=== PATIENT | male | born 1955 | race Two or more races ===

== ENCOUNTER 2018-03-05 17:19 | Inpatient (IN) | payer MEDICARE ==
[~2018-03-05] VITALS: Ht 170.2 cm; Wt 68.0 kg
--- NOTE | 2018-03-05 17:25 | NUR ---
PT [facility]YCH [facility]AR[facility], PT IS AAOX3, NOT IN RESPIRATORY DISTRESS, V/S STABLE. KEPT RESTED AND COMFORTABLE.
[2018-03-05 18:39] LABS: BASOPHILS # (AUTO) 0.1 /CMM (0.0-0.2); BASOPHILS % (AUTO) 0.8 % (0.0-2.0); EOSINOPHILS % (AUTO) 1.2 % (0.0-6.0); HEMATOCRIT 38 % (39-51); HEMOGLOBIN 12.5 g/dL (13.5-17.5); LYMPHOCYTES # (AUTO) 1.1 /CMM (0.8-4.8); LYMPHOCYTES % (AUTO) 13.9 % (20.0-44.0); MEAN CORPUSCULAR HGB CONC 33 g/dl (31.0-36.0); MEAN CORPUSCULAR VOLUME 82 fL (80-96); MONOCYTES # (AUTO) 0.6 /CMM (0.1-1.30); MONOCYTES % (AUTO) 7.7 % (2.0-12.0); NEUTROPHILS # (AUTO) 6.2 /CMM (1.8-8.9); NEUTROPHILS % (AUTO) 76.4 % (43.0-81.0); PLATELET COUNT (AUTO) 472 /CMM (150-450); RED BLOOD CELL COUNT(AUTO) 4.62 MIL/uL (4.5-6.0); WHITE BLOOD COUNT (AUTO) 8.2 K/uL (4.3-11.0)
--- NOTE | 2018-03-05 18:40 | NUR ---
SEEND AND EXAMINED BY KATIE LEDBETTER
--- NOTE | 2018-03-05 18:42 | NUR ---
LABS DRAWNED AND URINE SPECIMEN COLLECTED AND SENT TO LAB.
[2018-03-05 18:44] LABS: APPEARANCE,URINE Clear (CLEAR); BILIRUBIN,URINE Negative (NEGATIVE); BLOOD, URINE Negative Ery/uL (NEGATIVE); COLOR,URINE Yellow (YELLOW); KETONES,URINE Negative (NEGATIVE); LEUKOCYTE ESTERASE ,URINE Negative (NEGATIVE); NITRITE, URINE Negative (NEGATIVE); PROTEIN,URINE Negative (NEGATIVE); UGLUCOSE 100 MG/DL mg/dL (NEGATIVE); UROBILINOGEN,URINE 0.2 EU/dL (0.2)
[2018-03-05 18:51] LABS: CALCIUM, SERUM 9.3 mg/dL (8.5-10.1); CARBON DIOXIDE 30 mmol/L (21-32); CHLORIDE 102 mmol/L (98-107); CREATININE 0.6 mg/dL (0.6-1.3); GLUCOSE 92 mg/dL (74-106); POTASSIUM 3.9 mmol/L (3.5-5.1); SODIUM SERUM 139 mmol/L (136-145); UREA NITROGEN, BLOOD 8 mg/dL (7-18)
[2018-03-05 18:54] LABS: ALANINE AMINOTRANSFERASE 43 U/L (12-78); ALBUMIN 3.2 g/dL (3.4-5.0); ALCOHOL, BLOOD < 3 mg/dL (0-0); ALKALINE PHOSPHATASE 80 U/L (46-116); ASPARTATE AMINOTRANSFERASE 21 U/L (15-37); BILIRUBIN,DIRECT 0.2 mg/dL (0.0-0.2); BILIRUBIN,TOTAL 0.3 mg/dL (0.2-1.0); TOTAL PROTEIN, SERUM 8.1 g/dL (6.4-8.2)
[2018-03-05 18:55] LABS: ACETAMINOPHEN < 2 ug/ml (10-30); SALICYLATE < 2.8 mg/dL (2.8-20.0)
--- NOTE | 2018-03-05 19:21 | NUR ---
REPORT GIVEN TO JARAD SOSA FOR EVGENY.
--- NOTE | 2018-03-05 22:39 | NUR ---
report given to [facility], pt going to room 217
--- NOTE | 2018-03-05 23:06 | NUR ---
PT BEING TRANSFERRED TO [facility] NOW, NO MEDICATIONS PRESENT, PT CANNOT REMEMBER WHAT MEDICATIONS HE TAKES
[2018-03-05 23:15] VITALS: BP 132/71
--- NOTE | 2018-03-05 23:15 | NUR ---
[facility]PS ADMISSION NOTES ADMITTED FROM ER THIS 63 YO MALE FROM [facility],WITH DX PSYCHOSIS.EASILY AGITATED,THREATENED TO BURN DOWN THE FACILITY.A/O X2-3,ABLE TO PROVIDE SOME INFORMATION REGARDING SELF.NO IV ACCESS PER GPS PROTOCOL.NOTED SKIN LESIONS/MAS ON LEFT NECK WHICH STARTED 8 MONTHS AGO PER PATIENT.AMBULATORY WITH STEADY GAIT.WILL CONTINUE TO MONITOR BEHAVIOR AND MANAGE ACCORDINGLY.
[2018-03-05] MEDS ORDERED: LORAZEPAM 0.5 MG TABLET PO PRN (23:30)
[2018-03-05] MEDS ORDERED: MAGNESIUM HYDROXIDE 30 ML UDC PO PRN (23:30)
[2018-03-05] MEDS ORDERED: MAG HYDROX/AL HYDROX/SIMETH 30 ML UDC PO PRN (23:30)
[2018-03-05] MEDS: ACETAMINOPHEN 325 MG TABLET PO PRN (23:44)
--- NOTE | 2018-03-05 23:44 | NUR ---
[facility]PS RN NOTES C/O HEADACHE,MEDICATED WITH TYLENOL 650MG PO ORDERED.
[2018-03-06] MEDS ORDERED: MULT1TAB73 PO (06:58)
[2018-03-06] MEDS ORDERED: FOLI1TAB16 PO (06:58)
[2018-03-06] MEDS ORDERED: GABA-534 PO (06:58)
[2018-03-06] MEDS ORDERED: CHOL200026 PO (06:58)
[2018-03-06] MEDS ORDERED: THIA100V2 IJ (06:58)
[2018-03-06] MEDS ORDERED: OLAN2.5T3 PO (06:58)
[2018-03-06] MEDS ORDERED: ACET-868 PO (07:50)
[2018-03-06] MEDS ORDERED: NA P133E RC (07:50)
[2018-03-06] MEDS ORDERED: DOCU-141 PO (07:50)
[2018-03-06] MEDS ORDERED: RISP0.253 PO (07:50)
[2018-03-06] MEDS ORDERED: CEPH-570 PO (07:50)
[2018-03-06] MEDS ORDERED: MULT-24 PO (07:50)
[2018-03-06] MEDS ORDERED: MAG30ORA PO (07:50)
[2018-03-06] MEDS ORDERED: THIA100T74 PO (07:50)
[2018-03-06 08:00] VITALS: BP 119/81
[2018-03-06 08:08] LABS: BASOPHILS % (AUTO) 0.6 % (0.0-2.0); HEMATOCRIT 35 % (39-51); HEMOGLOBIN 11.7 g/dL (13.5-17.5); LYMPHOCYTES # (AUTO) 1.1 /CMM (0.8-4.8); LYMPHOCYTES % (AUTO) 16.3 % (20.0-44.0); MEAN CORPUSCULAR HGB CONC 33 g/dl (31.0-36.0); MEAN CORPUSCULAR VOLUME 81 fL (80-96); MONOCYTES # (AUTO) 0.6 /CMM (0.1-1.30); MONOCYTES % (AUTO) 8.4 % (2.0-12.0); NEUTROPHILS # (AUTO) 5.1 /CMM (1.8-8.9); NEUTROPHILS % (AUTO) 72.7 % (43.0-81.0); PLATELET COUNT (AUTO) 422 /CMM (150-450); RED BLOOD CELL COUNT(AUTO) 4.37 MIL/uL (4.5-6.0)
[2018-03-06 08:24] LABS: ALBUMIN 2.9 g/dL (3.4-5.0); BILIRUBIN,TOTAL 0.4 mg/dL (0.2-1.0); CALCIUM, SERUM 8.9 mg/dL (8.5-10.1); CREATININE 0.6 mg/dL (0.6-1.3); TOTAL PROTEIN, SERUM 7.1 g/dL (6.4-8.2)
[2018-03-06 08:27] LABS: CHOLESTEROL 140 mg/dL (<200); HDL CHOLESTEROL 25 mg/dL (40-60); LDL 90 mg/dL (0-99); TRIGLYCERIDES 212 mg/dL (30-150)
[2018-03-06] MEDS ORDERED: OLANZAPINE 10 MG VIAL IM PRN (10:30)
--- NOTE | 2018-03-06 10:45 | NUR ---
SW contacted pts Public Guardian with [facility] Jo Ann Mcdowell [phone] to request Detain and Treat and Conservatorship documentation. SW received documents and placed in pts chart.
--- NOTE | 2018-03-06 10:47 | NUR ---
CORBY contacted Loni, diabetes education coordinator at [facility] Address: [address] [place] [address] who confirmed pt will return to facility.
--- NOTE | 2018-03-06 11:10 | NUR ---
INITIAL DISCHARGE PLAN: Per Public Piedad Mcdowell [phone] pt will return to [facility]. CORBY contacted Loni regulatory compliance coordinator at [facility] Address: [address] [place] [address] who confirmed pt will return to facility. CORBY will help form a safe and proper discharge in collaboration with public guardian and .
[2018-03-06] MEDS: DIVALPROEX SODIUM 250 MG TABLET.DR PO SCH ×2 (11:12→21:00)
[2018-03-06] MEDS: OLANZAPINE 5 MG/TAB.RAPDIS PO SCH ×2 (11:13→16:39)
[2018-03-06] MEDS: GABAPENTIN 300 MG CAPSULE PO SCH ×2 (12:25→16:39)
[2018-03-06 16:00] VITALS: BP 121/68
--- NOTE | 2018-03-06 18:19 | NUR ---
RN-CO: Patient was seen and examined by Raulito Lang NP , notified him of the left mass on the lateral neck with order of CT of the neck without contrast.
[2018-03-06] MEDS ORDERED: NA PHOS,M-B/NA PHOS,DI-BA 1 EA ENEMA RC PRN (18:30)
[2018-03-06] MEDS ORDERED: ACETAMINOPHEN 325 MG TABLET PO PRN (18:30)
[2018-03-06] MEDS ORDERED: MAG HYDROX/AL HYDROX/SIMETH 30 ML UDC PO PRN (18:30)
[2018-03-06 20:00] VITALS: BP 113/64
[2018-03-06] MEDS: ZOLPIDEM TARTRATE 5 MG TABLET PO PRN (22:15)
[2018-03-07 08:00] VITALS: BP 116/67
[2018-03-07] MEDS: OLANZAPINE 5 MG/TAB.RAPDIS PO SCH ×2 (08:44→18:22)
[2018-03-07] MEDS: DIVALPROEX SODIUM 250 MG TABLET.DR PO SCH ×3 (08:45→21:16)
[2018-03-07] MEDS: GABAPENTIN 300 MG CAPSULE PO SCH ×3 (08:45→18:22)
[2018-03-07] MEDS: FOLIC ACID 1 MG TABLET PO SCH (08:50)
[2018-03-07] MEDS: MULTIVITAMINS,THERAGRAN 1 UDTAB TABLET PO SCH (08:50)
[2018-03-07] MEDS: DOCUSATE SODIUM 100 MG CAPSULE PO SCH ×2 (08:51→18:22)
[2018-03-07] MEDS: THIAMINE HCL 100 MG TABLET PO SCH (08:51)
[2018-03-07] MEDS: CHOLECALCIFEROL 1,000 UNIT TABLET (VIT D3) PO SCH (08:51)
[2018-03-07] MEDS: ACETAMINOPHEN 325 MG TABLET PO PRN (15:06)
[2018-03-07 16:00] VITALS: BP 121/78
[2018-03-07] MEDS ORDERED: IV NS 0.9% 1,000 ML BAG IV PRN (17:00)
[2018-03-07 20:00] VITALS: BP 124/72
[2018-03-07] MEDS: ZOLPIDEM TARTRATE 5 MG TABLET PO PRN (21:16)
--- NOTE | 2018-03-07 21:20 | NUR ---
SURFACE TO AIR WEAPONS OFFICER NOTES MAALOX GIVEN PER PT REQUESTED WELL HIS ROUTINE MEDS. SNACKS ALSO SERVED.
[2018-03-08 08:00] VITALS: BP 105/60
[2018-03-08] MEDS: GABAPENTIN 300 MG CAPSULE PO SCH ×3 (08:43→16:35)
[2018-03-08] MEDS: CHOLECALCIFEROL 1,000 UNIT TABLET (VIT D3) PO SCH (08:43)
[2018-03-08] MEDS: DIVALPROEX SODIUM 250 MG TABLET.DR PO SCH ×2 (08:43→22:00)
[2018-03-08] MEDS: OLANZAPINE 5 MG/TAB.RAPDIS PO SCH ×2 (08:43→16:35)
[2018-03-08] MEDS: DOCUSATE SODIUM 100 MG CAPSULE PO SCH ×2 (08:43→16:35)
[2018-03-08] MEDS: FOLIC ACID 1 MG TABLET PO SCH (08:43)
[2018-03-08] MEDS: THIAMINE HCL 100 MG TABLET PO SCH (08:45)
[2018-03-08] MEDS: MULTIVITAMINS,THERAGRAN 1 UDTAB TABLET PO SCH (08:45)
[2018-03-08 11:42] LABS: BASOPHILS % (AUTO) 0.4 % (0.0-2.0); EOSINOPHILS % (AUTO) 1.6 % (0.0-6.0); HEMATOCRIT 35 % (39-51); HEMOGLOBIN 11.8 g/dL (13.5-17.5); LYMPHOCYTES # (AUTO) 1.8 /CMM (0.8-4.8); LYMPHOCYTES % (AUTO) 16.5 % (20.0-44.0); MEAN CORPUSCULAR HGB CONC 34 g/dl (31.0-36.0); MEAN CORPUSCULAR VOLUME 80 fL (80-96); MONOCYTES # (AUTO) 0.8 /CMM (0.1-1.30); MONOCYTES % (AUTO) 7.8 % (2.0-12.0); NEUTROPHILS # (AUTO) 7.9 /CMM (1.8-8.9); NEUTROPHILS % (AUTO) 73.7 % (43.0-81.0); PLATELET COUNT (AUTO) 435 /CMM (150-450); RED BLOOD CELL COUNT(AUTO) 4.37 MIL/uL (4.5-6.0); WHITE BLOOD COUNT (AUTO) 10.7 K/uL (4.3-11.0)
[2018-03-08 11:55] LABS: CALCIUM, SERUM 8.8 mg/dL (8.5-10.1); CREATININE 0.7 mg/dL (0.6-1.3); POTASSIUM 3.9 mmol/L (3.5-5.1)
[2018-03-08] MEDS: ACETAMINOPHEN 325 MG TABLET PO PRN (12:56)
[2018-03-08 16:00] VITALS: BP 142/93
--- NOTE | 2018-03-08 19:11 | NUR ---
GPS/RN ENDORSED TO HEALTH POLICY MANAGER TO GET THE MESSAGE TO DAY SHIFT NURSE TO FOLLOW UP ON CONSENTS FOR PROCEDURES TO BE SIGNED BY THE CONSERVATOR. CONSENTS ARE READY AND PLACED IN THE CHART.
[2018-03-08 20:00] VITALS: BP 114/55
[2018-03-08 20:20] VITALS: BP 114/55
[2018-03-09 08:00] VITALS: BP 128/75
[2018-03-09] MEDS: GABAPENTIN 300 MG CAPSULE PO SCH ×3 (10:04→17:14)
[2018-03-09] MEDS: CHOLECALCIFEROL 1,000 UNIT TABLET (VIT D3) PO SCH (10:04)
[2018-03-09] MEDS: THIAMINE HCL 100 MG TABLET PO SCH (10:04)
[2018-03-09] MEDS: DIVALPROEX SODIUM 250 MG TABLET.DR PO SCH ×2 (10:04→21:13)
[2018-03-09] MEDS: DOCUSATE SODIUM 100 MG CAPSULE PO SCH ×2 (10:04→17:14)
[2018-03-09] MEDS: FOLIC ACID 1 MG TABLET PO SCH (10:04)
[2018-03-09] MEDS: MULTIVITAMINS,THERAGRAN 1 UDTAB TABLET PO SCH (10:05)
--- NOTE | 2018-03-09 10:23 | NUR ---
RN NOTE: CALLED CONSERVATOR FOR CONSENTS, BUT NO DECORATING SUPERVISOR. LEFT A MESSAGE AND WILL FOLLOW UP LATER TODAY.
--- NOTE | 2018-03-09 10:25 | NUR ---
CORBY received a call from Cassie from [facility] [phone] stating pt has a reappointment hearing on 03/12/18 at 8:30am at [address] [place] [address] [address]. CORBY stated she would contact Psychiatrist Dr. Vieyra to ask when pt will be ready for discharge.
--- NOTE | 2018-03-09 10:28 | NUR ---
CORBY contacted pts Public Guardian with [place] [facility] Mcdowell [phone] and left a voicemail informing her pt will be discharged on Friday03/11/[address] [facility].
[2018-03-09 12:58] LABS: THYROID STIMULATING HORMONE 0.411 uIU/mL (0.358-3.74)
--- NOTE | 2018-03-09 15:19 | NUR ---
SPOKE WITH JARAD PETIT AT 1100 AND 1515 CONSENT STILL PENDING FOR US GUIDED NEEDLE BIOPSY.. WILL FOLLOW UP TOMORROW
--- NOTE | 2018-03-09 15:54 | NUR ---
RN NOTE: CALLED CONSERVATOR ALY FOR CONSENT, BUT NO PICKUP. WILL ENDORSE TO INJECTION MOLDING MACHINE OPERATOR.
[2018-03-09 16:00] VITALS: BP 144/80
[2018-03-09] MEDS: OLANZAPINE 5 MG/TAB.RAPDIS PO SCH (17:14)
[2018-03-09 20:00] VITALS: BP 116/64
--- NOTE | 2018-03-10 06:47 | NUR ---
gps rn notes: patient refused to have his blood draw this morning. explained to patient the importance of such blood draw, but patient refused. cost report clerk attempted to do the blood draw thrice but patient still refused. charge nurse made aware. will endorse to day shift nurse.
[2018-03-10] MEDS: CHOLECALCIFEROL 1,000 UNIT TABLET (VIT D3) PO SCH (09:02)
[2018-03-10] MEDS: GABAPENTIN 300 MG CAPSULE PO SCH ×3 (09:02→16:27)
[2018-03-10] MEDS: OLANZAPINE 5 MG/TAB.RAPDIS PO SCH ×2 (09:02→16:26)
[2018-03-10] MEDS: DOCUSATE SODIUM 100 MG CAPSULE PO SCH ×2 (09:03→16:26)
[2018-03-10] MEDS: DIVALPROEX SODIUM 250 MG TABLET.DR PO SCH ×2 (09:03→20:34)
[2018-03-10] MEDS: FOLIC ACID 1 MG TABLET PO SCH (09:03)
[2018-03-10] MEDS: THIAMINE HCL 100 MG TABLET PO SCH (09:03)
[2018-03-10] MEDS: MULTIVITAMINS,THERAGRAN 1 UDTAB TABLET PO SCH (09:03)
[2018-03-10] MEDS: FERROUS SULFATE (325 MG) 325 MG/TAB TABLET PO SCH ×2 (09:03→16:26)
--- NOTE | 2018-03-10 09:50 | NUR ---
RN-CO: CALLED CONSERVATOR, JESSICA LAWSON REGARDING CONSENT FOR BIOPSY, AWAITING TO CALL BACK.
--- NOTE | 2018-03-10 09:53 | NUR ---
ESPINOZA LUND IN [facility] CONSENT NOT SIGNED, WILL NOTIFY RADIOLOGY.
--- NOTE | 2018-03-10 11:14 | NUR ---
CORBY contacted Loni, proposal coordinator at [facility] Address: [address] [place] [address] to inform her pt is discharging tomorrow Friday03/11/18 and also informed her pt has a reappointment hearing with [facility] on 03/12/18 at 0830.
--- NOTE | 2018-03-10 11:22 | NUR ---
SW received a xall from Loni, patient services coordinator at [facility] Address: [address] [place] [address] stating they do not have a bed for pt and due to his aggressive behavior they are not taking him back, Loni stated that pt is able to go to a sister facility.
--- NOTE | 2018-03-10 11:31 | NUR ---
SW contacted pts Public Guardian with [facility] Jo Ann Mcdowell [phone] and left a voicemail informing her [facility] is not taking pt back and will be referring to a SNF in the [place] area.
--- NOTE | 2018-03-10 11:33 | NUR ---
CORBY faxed SNF referral to Renato .Net Architect at [facility] Address: [address], [place] [address] and [facility] (SNF) [address] [address] for SNF placement. .
--- NOTE | 2018-03-10 12:00 | NUR ---
RN NOTES PT REFUSED LAB DRAWING TWICE TODAY , DR FREEMAN NOTIFIED. NO RETURN CALL FROM PUBLIC GUARDIAN CONSERVATOR JESSICA MARINA REGARDING CONSENT FOR BX AND CT SCAN YET. CALL MADE AND SPOKE TO DEVON PEDRAZA AT [phone] REGARDING THE CONSENT. PER DEVON PEDRAZA , SHE WILL GET IN TOUCH WITH JESSICA MARINA TO LET HER KNOW TO CALL [facility] REGARDING THE CONSENT.
--- NOTE | 2018-03-10 13:34 | NUR ---
SW received a call from Kat, affiliate marketing coordinator at [facility] () [address] [address] stating pt has been accepted to the facility.
--- NOTE | 2018-03-10 13:37 | NUR ---
SW contacted pts Public Guardian with [facility] Jo Ann Mcdowell [phone] and left a voicemail informing pt has been accepted and will be discharging to [facility].
--- NOTE | 2018-03-10 15:09 | NUR ---
RN NOTES CONSENTS OBTAINED BY FAX FROM PUBLIC GUARDIAN CONSERVATOR JESSICA MARINA . X- RAY NOTIFED REGARDING CT .
--- NOTE | 2018-03-10 15:15 | NUR ---
RN NOTES DR SCOTT NOTIFIED REGARDING INFORMED CONSENT THAT WAS RECEIVED FROM GUARDIAN .
--- NOTE | 2018-03-10 15:37 | NUR ---
RN-CO: Called radiology department for the schedule of the mass biopsy of the neck( since conservator) signed the consent. Per Dr Brandon Lerma order. Radiology will call GPS for the time tomm. Addendum: 03/10/18 at 1541 by PALLAVI BERNAL RN RN-CO: LORI artificial breeding ranch supervisor made aware and stated " we will deal with that tomorrow."
[2018-03-10 16:00] VITALS: BP 104/55
--- NOTE | 2018-03-10 16:05 | NUR ---
CORBY received a call from Cassie from [facility] [phone] stating pts reappointment hearing on 03/12/18 at 8:30am at [address] [place] [address] [address] has been cancelled.
--- NOTE | 2018-03-10 16:11 | NUR ---
SW contacted pts Public Guardian with [place] [facility] [phone] and left a voicemail stating that SW was made aware of that pt has a mass biopsy schedule for tomorrow and thus will follow up with Psychiatrist regarding discharge.
--- NOTE | 2018-03-10 17:00 | NUR ---
RN NOTES PT GOING FOR CT CHEST AND PELVC WITH CONTRAST , L ARM IV G20 STARTED.
[2018-03-10] MEDS ORDERED: IOHEXOL-300 100 ML VIAL IV ONE (17:18)
--- NOTE | 2018-03-10 18:12 | NUR ---
RN NOTES PT AGREED TO GET BLOOD DRAWING DONE ,LAB NOTIFED, WILL ENDOSE TO QUALITY ASSURANCE CONSULTANT NURSE FOR CONTINUITY OF CARE .
[2018-03-10 20:00] VITALS: BP 108/68
[2018-03-10 20:48] VITALS: BP 108/68
[2018-03-11 08:00] VITALS: BP 108/67
[2018-03-11] MEDS: MULTIVITAMINS,THERAGRAN 1 UDTAB TABLET PO SCH (09:00)
[2018-03-11] MEDS: THIAMINE HCL 100 MG TABLET PO SCH (09:00)
[2018-03-11] MEDS: OLANZAPINE 5 MG/TAB.RAPDIS PO SCH (09:00)
[2018-03-11] MEDS: DOCUSATE SODIUM 100 MG CAPSULE PO SCH (09:00)
[2018-03-11] MEDS: FERROUS SULFATE (325 MG) 325 MG/TAB TABLET PO SCH (09:00)
[2018-03-11] MEDS: CHOLECALCIFEROL 1,000 UNIT TABLET (VIT D3) PO SCH (09:00)
[2018-03-11] MEDS: DIVALPROEX SODIUM 250 MG TABLET.DR PO SCH (09:00)
[2018-03-11] MEDS: FOLIC ACID 1 MG TABLET PO SCH (09:00)
[2018-03-11] MEDS: GABAPENTIN 300 MG CAPSULE PO SCH ×2 (09:00→14:05)
[2018-03-11 10:19] LABS: IMMUNOGLOBULIN A, SERUM 395 mg/dL (61-437); IMMUNOGLOBULIN G, SERUM 870 mg/dL (700-1600); IMMUNOGLOBULIN M, SERUM 91 mg/dL (20-172)
--- NOTE | 2018-03-11 13:13 | NUR ---
CORBY contacted pts Public Guardian with [facility] Jo Ann Mcdowell ([phone]) and informed her on her voicemail that the pt was discharged to the medical floor of [facility] due to the biopsy that was consented to. CORBY stated that he would be discharged from the medical floor with the same discharge plan as of right now.
--- NOTE | 2018-03-11 13:18 | NUR ---
Discharge Note: Pt was discharged to [facility] due to the pt having a biopsy scheduled for today. Pt's initial discharge plan to be admitted to [facility] is still intact. Pt will be discharged from the medical floor when doctors believe that the pt is stable.
--- NOTE | 2018-03-11 14:36 | NUR ---
pt has been discharge by psych MD Dr. Vieyra. Per Dr. Cabrera, Pt ok to be transferred to medical floor for a scheduled biopsy of his neck later today. Pt is alert oriented x 4. calm and cooperative. denies s/i and/or h/i at time of discharge. no acute distress noted. vital sign stable. medication recon completed. belongings returned to patient. exitcare completed. pt left unit in stable condition. pt went to med surg room 205.
[2018-03-11] MEDS ORDERED: LORA1TAB PO (16:11)
[2018-03-11] MEDS ORDERED: NORM10004 IV (16:11)
[2018-03-11] MEDS ORDERED: MAGN400O6 PO (16:11)
[2018-03-11] MEDS ORDERED: FERR325T23 PO (16:11)
[2018-03-11] MEDS ORDERED: DIVA250T PO (16:11)
[2018-03-11] MEDS ORDERED: OLAN10TA6 PO (16:11)
[2018-03-11] MEDS ORDERED: ZOLP5TAB8 PO (16:11)
[2018-03-11] MEDS ORDERED: FOLI1TAB16 PO (16:11)
[2018-03-11] MEDS ORDERED: OLAN10VI IM (16:11)
[2018-03-12 05:10] LABS: *SPE A/G RATIO 0.9 (0.7-1.7); *SPE ALBUMIN 2.7 g/dL (2.9-4.4); *SPE ALPHA-1-GLOBULIN 0.3 g/dL (0.0-0.4); *SPE ALPHA-2-GLOBULIN 0.9 g/dL (0.4-1.0); *SPE BETA GLOBULIN 1.1 g/dL (0.7-1.3); *SPE GLOBULIN, TOTAL 3.1 g/dL (2.2-3.9); *SPE M-SPIKE Not Observed g/dL (Not Observed); *SPEGAMMA GLOBULIN 0.8 g/dL (0.4-1.8)
== END 2018-03-11 14:30 | disposition short-term general hospital (02) | DRG 885 ==
LOC: EDBD 17:19 → ER 17:19 → GPS 21:43
PROVIDERS: ADMIT Psychiatry & Neurology Psychiatry; ATTEND Psychiatry & Neurology Psychiatry
DX: F25.0 Schizoaffective disorder, bipolar type (principal); E44.1 Mild protein-calorie malnutrition; C82.90 Follicular lymphoma, unspecified, unspecified site; F29 Unspecified psychosis not due to a substance or known physiological condition; D63.8 Anemia in other chronic diseases classified elsewhere; F32.9 Major depressive disorder, single episode, unspecified; E88.09 Other disorders of plasma-protein metabolism, not elsewhere classified; D47.3 Essential (hemorrhagic) thrombocythemia; F17.210 Nicotine dependence, cigarettes, uncomplicated; Z68.23 Body mass index [BMI] 23.0-23.9, adult; J32.9 Chronic sinusitis, unspecified; E78.1 Pure hyperglyceridemia; C07 Malignant neoplasm of parotid gland; E61.1 Iron deficiency; R93.5 Abnormal findings on diagnostic imaging of other abdominal regions, including retroperitoneum; R91.8 Other nonspecific abnormal finding of lung field; R59.1 Generalized enlarged lymph nodes
CPT/HCPCS: 36415; 70490-TC; 71260-TC; 80048-TC; 80053-TC; 80061-TC; 80076-TC; 80164-TC; 80305; 81000-TC; 82378; 82728-TC; 82784; 83540-TC; 83615-TC; 84155; 84165; 84443-TC; 85025-TC; 85610-TC; 85730-TC; 86334; 87081-TC; G0480; J7030; Q9967

== ENCOUNTER 2018-03-11 14:25 | Inpatient (IN) | payer MEDICARE ==
[~2018-03-11] VITALS: Ht 170.2 cm; Wt 68.0 kg
--- NOTE | 2018-03-11 13:30 | NUR ---
RN NOTES TEMPERATURE ORAL= 100.1. TYLENOL GIVEN ORDERED AND COOLING MEASURES. WILL REASSESS PATIENT. Addendum: 03/11/18 at 1724 by KRISTOFER PRADO WRONG TIME: CORRECT TIME IS 1630
[~2018-03-11 14:25] MED LIST: ACET-868 PO; CEPH-570 PO; CHOL200026 PO; DOCU-141 PO; FOLI1TAB16 PO; GABA-534 PO; MAG30ORA PO; MULT-24 PO; NA P133E RC; THIA100T74 PO
--- NOTE | 2018-03-11 14:30 | NUR ---
RN OPENING NOTES RECEIVED PATIENT FROM [facility]. PATIENT IN STABLE CONDIITON, A/OX 2-3,AMBULATORY, ABLE TO MAKE NEEDS KNOWN. PER REPORT PATIENT IS GOING TO HAVE US GUIDED BIOPSY OF THE NECK TOMORROW. NOTED WITH IV ACCESS ON RIGHT FOREARM, INTACT AND PATENT. REFUSED BODY CHECKED AT THE MOMENT, HE SAID "NOT RIGHT NOW, IM RESTING". NOTIFIED MD, AWAITING ADMITTING ORDERS. KEPT PATIENT SAFE AND COMFORTABLE. BED IN LOW/LOCKED POSITION, SIDERAILS UPX2, CALL LIGHT IN REACH. WILL CONTINUE TO MONITOR ACCORDINGLY.
[2018-03-11 14:50] VITALS: BP 127/75
[2018-03-11] MEDS ORDERED: MAG HYDROX/AL HYDROX/SIMETH 30 ML UDC PO PRN (15:30)
[2018-03-11] MEDS ORDERED: MAGNESIUM HYDROXIDE 30 ML UDC PO PRN (15:30)
[2018-03-11] MEDS ORDERED: ONDANSETRON HCL/PF 4 MG/2 ML VIAL IVP PRN (15:30)
[2018-03-11] MEDS ORDERED: HYDROCODONE/APAP 5/325MG 1 EACH TABLET PO PRN (15:30)
[2018-03-11] MEDS ORDERED: Z GUARD REMEDY 2 OZ OINT TP PRN (15:30)
[2018-03-11 16:00] VITALS: BP 120/64
[2018-03-11] MEDS ORDERED: OLAN10TA6 PO (16:11)
[2018-03-11] MEDS ORDERED: OLAN10VI IM (16:11)
[2018-03-11] MEDS ORDERED: FERR325T23 PO (16:11)
[2018-03-11] MEDS ORDERED: ZOLP5TAB8 PO (16:11)
[2018-03-11] MEDS ORDERED: MAGN400O6 PO (16:11)
[2018-03-11] MEDS ORDERED: DIVA250T PO (16:11)
[2018-03-11] MEDS ORDERED: LORA1TAB PO (16:11)
[2018-03-11] MEDS ORDERED: FOLI1TAB16 PO (16:11)
[2018-03-11] MEDS ORDERED: NORM10004 IV (16:11)
--- NOTE | 2018-03-11 16:30 | NUR ---
RN NOTES TEMPERATURE ORAL= 100.1. TYLENOL GIVEN ORDERED AND COOLING MEASURES. WILL REASSESS PATIENT.
[2018-03-11] MEDS: ACETAMINOPHEN 325 MG TABLET PO PRN ×2 (16:42→22:44)
[2018-03-11] MEDS: IV NS 0.9% 1,000 ML IV PRN (16:51)
--- NOTE | 2018-03-11 18:31 | NUR ---
RN NOTES: REASSESSED TEMP. TEMP=99.9. CONTINUE COOLING MEASURES.
--- NOTE | 2018-03-11 18:44 | NUR ---
RN NOTES ABLE TO GET PHOTOS ON LEFT NECK MASS, AND SCAR ON LATERAL KNEE. PATIENT STILL REFUSED BODY ASSESSMENT, REFUSED TO TAKE HIS PANTS OFF, SAYING "I DONT HAVE ANY OTHER WOUND."
--- NOTE | 2018-03-11 19:30 | NUR ---
RN CLOSING NOTES PATIENT IN STABLE CONDITION. NO SIGNIFICANT CHANGE IN PATIENT'S CONDITION. ALL NEEDS ATTENDED AND PROVIDED. ALL DUE MEDICATIONS GIVEN ORDERED. KEPT PATIENT SAFE AND COMFORTABLE. BED IN LOW/LOCKED POSITION, SIDERAILS UPX2, SEMIFOWLERS, CALL LIGHT IN REACH. ENDORSED TO NIGHT RN FOR EVGENY.
--- NOTE | 2018-03-11 19:55 | NUR ---
RN OPENING NOTES RECEIVED REPORT FROM DAYSHIFT JARAD MINER. Pt ORIGINALLY CAME FROM [facility] BUT NEEDED TO BE ADMITTED TO [facility] DUE TO DEHYDRATION AND BIOPSY OF THE NECK. Pt IS A/OX3, VERBAL, ABLE TO MAKE NEEDS KNOWN. IV ACCESS ON RFA #20G; IVF NS @75ML/HR. SAFETY MEASURES IN PLACE. BED LOW, LOCKED, HOB ELEVATED, SIDE RAILS UP, CALL LIGHT AND BEDSIDE TABLE WITHIN REACH. WILL CONTINUE TO MONITOR Pt's CONDITION AND SAFETY THROUGHOUT THE NIGHT.
[2018-03-11 20:00] VITALS: BP 121/70
--- NOTE | 2018-03-11 20:00 | NUR ---
RN NOTES Pt S/B DR FREEMAN. STARTED Pt ON CIPRO ABX. ALSO ORDERED URINE CX AND BLOOD CX DUE TO TEMP >100F.
[2018-03-11] MEDS ORDERED: CIPROFLOXACIN HCL 250 MG TABLET PO SCH (21:00)
[2018-03-11] MEDS: CIPROFLOXACIN HCL 500 MG TABLET PO SCH (21:27)
--- NOTE | 2018-03-11 23:00 | NUR ---
RN NOTES ADMINISTERED TYLENOL 650MG DUE TO TEMP OF 100.9F
[2018-03-11 23:51] LABS: APPEARANCE,URINE CLEAR (CLEAR); BILIRUBIN,URINE NEGATIVE (NEGATIVE); BLOOD, URINE NEGATIVE Ery/uL (NEGATIVE); COLOR,URINE YELLOW (YELLOW); KETONES,URINE TRACE (NEGATIVE); LEUKOCYTE ESTERASE ,URINE NEGATIVE (NEGATIVE); NITRITE, URINE NEGATIVE (NEGATIVE); PH,URINE 6.5 (5.0-8.0); PROTEIN,URINE NEGATIVE (NEGATIVE); UGLUCOSE NEGATIVE (NEGATIVE); UROBILINOGEN,URINE 0.2 EU/dL (0.2)
[2018-03-12 00:07] LABS: BACTERIA,URINE Rare /HPF (None Seen); RBC,URINE 0-2 /HPF (0-2); SQUAMOUS EPITHELIAL CELL,UR Rare /HPF (None Seen); WBC,URINE 0-2 /HPF (0-3)
[2018-03-12] MEDS: ZOLPIDEM TARTRATE 5 MG TABLET PO PRN (00:43)
--- NOTE | 2018-03-12 02:38 | NUR ---
RECHECKED TEMP. T WENT DOWN FROM 100.9 TO 98.9F
--- NOTE | 2018-03-12 06:42 | NUR ---
RN CLOSING NOTES NO SIGNIFICANT CHANGES IN Pt's CONDITION. Pt REMAINS STABLE PER BASELINE. Pt IS RESTING COMFORTABLY IN BED. NO S/S OF ACUTE DISTRESS OR SOB NOTED DURING THE NIGHT. RESPIRATIONS EVEN AND UNLABORED. ALL NEEDS MET AND ATTENDED TO THROUGHOUT THE SHIFT. SAFETY MEASURES IN PLACE. BED LOW, LOCKED, HOB ELEVATED, SIDE RAILS UP, CALL LIGHT AND BEDSIDE TABLE WITHIN REACH. PLAN FOR US NEEDLE GUIDED LT NECK BIOPSY TODAY. WILL ENDORSE TO DAYSHIFT RN FOR Pt's EVGENY.
--- NOTE | 2018-03-12 07:34 | NUR ---
MS RN NOTES-- CALLED CONSERVATOR TANIYA FOR CONSENT, LEFT A MESSAGE. WILL CALL BACK.
--- NOTE | 2018-03-12 07:45 | NUR ---
MS RN OPENING NOTES RECEIVED PT LAYING IN BED, AWAKE AND ALERT. PT IS A/O X2. RESPIRATIONS ARE EVEN AND UNLABORED, NOT IN ANY ACUTE DISTRESS NOTED. PT DENIES ANY PAIN AT THIS TIME, NO C/O SOB, N/V. IV SITE TO RFA INTACT, NO INFILTRATION NOTED. DRESSING KEPT CLEAN AND DRY. SAFETY MEASURES ARE IN PLACE. INSTRUCTED PT TO USE CALL LIGHT WHEN ASSISTANCE IS NEEDED, CALL LIGHT IS LEFT WITHIN REACH. WILL CONTINUE TO MONITOR FOR CONTINUITY OF CARE.
[2018-03-12 08:00] VITALS: BP 109/64
[2018-03-12] MEDS: ACETAMINOPHEN 325 MG TABLET PO PRN ×2 (08:41→21:16)
[2018-03-12] MEDS: CIPROFLOXACIN HCL 500 MG TABLET PO SCH (08:41)
[2018-03-12] MEDS: IV NS 0.9% 1,000 ML IV PRN (08:44)
--- NOTE | 2018-03-12 10:30 | NUR ---
MS RN NOTES-- CALLED CONSERVATOR TANIYA FOR CONSENT, LEFT A MESSAGE. WILL TRY CALING BACK.
--- NOTE | 2018-03-12 10:50 | NUR ---
MS RN NOTES-- PER LAB, PT REFUSED LABS THIS AM. LAB CAME BACK AND PT STRONGLY REFUSED AGAIN. EXPLAINED THE IMPORTANCE OF BLOOD DRAW, PT STILL REFUSED AND REMAINS NONCOMPLIANT.
[2018-03-12] MEDS ORDERED: LORAZEPAM 1 MG TABLET PO PRN (11:30)
[2018-03-12] MEDS ORDERED: OLANZAPINE 10 MG VIAL IM PRN (11:30)
[2018-03-12] MEDS: GABAPENTIN 300 MG CAPSULE PO SCH ×2 (12:28→16:08)
[2018-03-12] MEDS: OLANZAPINE 5 MG/TAB.RAPDIS PO SCH ×2 (12:28→16:07)
[2018-03-12] MEDS: DIVALPROEX SODIUM 250 MG TABLET.DR PO SCH ×2 (12:28→21:17)
--- NOTE | 2018-03-12 12:45 | NUR ---
MS RN NOTES-- CALLED CORBY ROSAS RE: CONSENT IF STILL VALID AFTER BEING DISCHARGED TO [facility] FROM [facility]. PER RALPH, WILL BRING UP CONCERN TO CELL SUPPORT OPERATOR.
--- NOTE | 2018-03-12 13:00 | NUR ---
MS RN NOTES-- PT SEEN AND EXAMINED BY DR. CANNON.
--- NOTE | 2018-03-12 13:25 | NUR ---
MS RN NOTES-- PT SEEN AND EXAMINED BY DR. FREEMAN.
--- NOTE | 2018-03-12 13:26 | NUR ---
MS RN NOTES-- CALLED CONSERVATOR, REQUESTED TO SPEAK TO DUTY WORKER. LEFT ANOTHER MESSAGE. WILL TRY AGAIN.
--- NOTE | 2018-03-12 14:09 | NUR ---
MS RN NOTES-- CALLED BACK UP DEPUTY JUANA HENRY FOR JESSICA FOR CONSENT TO ULTRASOUND GUIDED BIOPSY, RECEIVED CONSENT. PLACED IN CHART.
--- NOTE | 2018-03-12 14:54 | NUR ---
MS RN NOTES-- SPOKE WITH LIAM IN ULTRASOUND, PROCEDURE WOULD BE SCHEDULED FOR TOMORROW.
[2018-03-12 16:00] VITALS: BP 134/91
[2018-03-12] MEDS ORDERED: ZOSYN IVPB 3.375 G in IV D5W 50ml IV ONE (16:00)
[2018-03-12 16:04] LABS: CALCIUM, SERUM 8.5 mg/dL (8.5-10.1); CREATININE 0.8 mg/dL (0.6-1.3); PHOSPHORUS 3.8 mg/dL (2.5-4.9); POTASSIUM 4.2 mmol/L (3.5-5.1)
[2018-03-12 16:05] LABS: BASOPHILS % (AUTO) 0.1 % (0.0-2.0); EOSINOPHILS % (AUTO) 0.2 % (0.0-6.0); HEMATOCRIT 33 % (39-51); HEMOGLOBIN 10.6 g/dL (13.5-17.5); LYMPHOCYTES # (AUTO) 1.2 /CMM (0.8-4.8); LYMPHOCYTES % (AUTO) 8.5 % (20.0-44.0); MEAN CORPUSCULAR HGB CONC 32 g/dl (31.0-36.0); MEAN CORPUSCULAR VOLUME 81 fL (80-96); MONOCYTES # (AUTO) 1.4 /CMM (0.1-1.30); MONOCYTES % (AUTO) 9.4 % (2.0-12.0); NEUTROPHILS # (AUTO) 11.8 /CMM (1.8-8.9); NEUTROPHILS % (AUTO) 81.8 % (43.0-81.0); PLATELET COUNT (AUTO) 295 /CMM (150-450); RED BLOOD CELL COUNT(AUTO) 4.04 MIL/uL (4.5-6.0); WHITE BLOOD COUNT (AUTO) 14.5 K/uL (4.3-11.0)
--- NOTE | 2018-03-12 18:09 | NUR ---
MS RN CLOSING NOTES ALL DUE MEDS GIVEN, NEEDS MET AND ANTICIPATED. PT IS A/O X3, AFEBRILE. RESPIRATIONS ARE EVEN AND UNLABORED, NOT IN ANY ACUTE DISTRESS NOTED. PT ABLE TO MAKE NEEDS KNOWN. DENIES ANY PAIN AT THIS TIME, NO C/O SOB, N/V. IV SITE TO RFA INTACT, NO INFILTRATION NOTED. DRESSING KEPT CLEAN AND DRY. SAFETY MEASURES ARE IN PLACE. BED IS IN ITS LOWEST AND LOCKED POSITION. REMINDED PT TO USE CALL LIGHT WHEN ASSISTANCE IS NEEDED, CALL LIGHT IS LEFT WITHIN REACH. WILL ENDORSE TO NEXT SHIFT FOR CONTINUITY OF CARE.
--- NOTE | 2018-03-12 19:30 | NUR ---
RECEIVED PATIENT IN BED WITH EYES CLOSED; EASILY AROUSABLE. AO X 3, ABLE TO MAKE NEEDS KNOWN. NO ACUTE DISTRESS NOTED. DENIES ANY PAIN AT THIS TIME. IV SITE PATENT, INTACT; IVF INFUSING ORDERED. SAFETY REMINDERS GIVEN. ON LOW BED WITH BILATERAL UPPER SIDE RAILS UP. CALL PHILIPPE WITHIN EASY REACH. WILL CONTINUE TO MONITOR.
[2018-03-12 20:00] VITALS: BP 98/50
--- NOTE | 2018-03-12 21:16 | NUR ---
TEMP 103 RELAYED TO BARBARA STEWART NP WITH NO NEW ORDERS. BLOOD CULTURES NO GROWTH AT 24 HOURS. PATIENT ON ZOSYN Q 6 HOURS. COOLING MEASURES GIVEN. TYLENOL ADMINISTERED. WILL CONTINUE TO MONITOR.
[2018-03-12] MEDS: PIPERACILLIN /TAZOBACTAM 3.375 G in IV D5W 50 ML IV SCH (23:35)
[2018-03-13] MEDS: PIPERACILLIN /TAZOBACTAM 3.375 G in IV D5W 50 ML IV SCH (05:34)
[2018-03-13] MEDS: IV NS 0.9% 1,000 ML IV PRN (05:34)
--- NOTE | 2018-03-13 06:16 | NUR ---
PATIENT ASLEEP, EASILY AROUSABLE. RESPIRATIONS EVEN. NO SIGNS OF PAIN NOTED. AFEBRILE. DUE MEDS GIVEN WITH NO ASE NOTED. IVF INFUSING ORDERED. NEEDS ATTENDED. SAFETY PRECAUTIONS AND COMFORT MEASURES IN PLACE. WILL GIVE REPORT TO DAY SHIFT FOR CONTINUITY OF CARE.
--- NOTE | 2018-03-13 07:15 | NUR ---
MSRN. PT RECEIVED ALERT AND CONVERSATIONAL BUT RELUCTANT TO ENGAGE. PT NPO R/T PROCEDURE. PT TOLERATING ROOM AIR WITHOUT DISTRESS AND DENIES PAIN OR DISCOMFORT AT THIS TIME. PT WITH IVC AT R FA G#20 INTACT AND OPERATIONAL WITH IVF PER RX. PT WITH RECENT FEVER - CURRENTLY 99.2. PT BED IN LOWEST LOCKED POSITION WITH HANDRIALSX2 AND CALL PHILIPPE WITHIN REACH, PT BRIEFED ON POC AND TODAY'S BX. PT WITHOUT COMPLAINT AT THIS TIME.
[2018-03-13 08:00] VITALS: BP 111/61
[2018-03-13] MEDS: OLANZAPINE 5 MG/TAB.RAPDIS PO SCH ×2 (10:31→17:08)
[2018-03-13] MEDS: GABAPENTIN 300 MG CAPSULE PO SCH ×3 (10:31→17:00)
[2018-03-13] MEDS: ACETAMINOPHEN 325 MG TABLET PO PRN (10:31)
[2018-03-13] MEDS: DIVALPROEX SODIUM 250 MG TABLET.DR PO SCH ×2 (10:31→20:53)
[2018-03-13] MEDS: PIPERACILLIN /TAZOBACTAM 3.375 G in IV D5W 100 ML IV SCH ×2 (11:57→20:51)
--- NOTE | 2018-03-13 12:00 | NUR ---
OANH. ABHISHEK WNL.
[2018-03-13 16:00] VITALS: BP 107/63
--- NOTE | 2018-03-13 18:26 | NUR ---
MSRN. PT REMAINS A&0X2. PT TOLERATING ROOM AIR WITHOUT DISTRESS AND DENIES PAIN OR DISCOMFORT AT THIS TIME. PT WITH IVC AT R FA G#20 INTACT AND OPERATIONAL WITH IVF PER RX. PT ASSISTED WITH PERSONAL CARE AND SHOWERED. REFUSED SKIN PHOTOS. PT BED IN LOWEST LOCKED POSITION WITH HANDRIALSX2 AND CALL PHILIPPE WITHIN REACH. PT WITHOUT CONCERN OR COMPLAINT AT THIS TIME, WILL ENDORSE TO NIGHT NURSE AT BEDSIDE FOR EVGENY.
--- NOTE | 2018-03-13 19:35 | NUR ---
MSRN RESTING QUIETLY, REFUSED ANY BODY ASSESSMENT FOR NOW. NO NEEDS MADE. PRESENT IVF INFUSING WELL . V/S MONITORED, DENIES ANY DISCOMFORTS. CLOSELY WATCHED.
[2018-03-13 20:00] VITALS: BP 88/46
[2018-03-13 22:00] VITALS: BP 113/57
--- NOTE | 2018-03-13 22:00 | NUR ---
MSRN AWAKENED, DUE MED ADMINISTERED. SNACKS REQUESTED PROVIDED. VOIDED FREELY, STANDBY ASSIST TO RESTROOM. SAFETY PRECAUTIONS OBSERVED.
[2018-03-14] MEDS: PIPERACILLIN /TAZOBACTAM 3.375 G in IV D5W 100 ML IV SCH ×3 (04:46→20:52)
--- NOTE | 2018-03-14 06:00 | NUR ---
MSRN REFUSED BLOOD WORK, GOT AGITATED AND UPSET WITH MELTING SUPERVISOR. UNCOOPERATIVE THIS TIME, WENT BACK TO SLEEP, REFUSED TO BE BOTHERED.
--- NOTE | 2018-03-14 07:47 | NUR ---
RN NOTES PATIENT ASLEEP BUT EASILY AWAKEN, NAD, REFUSED VITAL SIGNS, EXPLAINED RISKS AND BENEFITS STILL REFUSED, NEEDS ATTENDED, CALL LIGHT WITHIN REACH, WILL CONTINUE TO MONITOR.
[2018-03-14 08:00] VITALS: BP_SYST 186; BP_SYST 90; BP_DIAS 64; BP_DIAS 71
[2018-03-14] MEDS: GABAPENTIN 300 MG CAPSULE PO SCH ×3 (09:41→16:02)
[2018-03-14] MEDS: DIVALPROEX SODIUM 250 MG TABLET.DR PO SCH ×2 (09:42→20:55)
[2018-03-14] MEDS: OLANZAPINE 5 MG/TAB.RAPDIS PO SCH ×2 (09:42→16:02)
[2018-03-14 16:00] VITALS: BP 130/78
[2018-03-14] MEDS: IV NS 0.9% 1,000 ML IV PRN (16:03)
[2018-03-14 18:33] LABS: BASOPHILS % (AUTO) 0.1 % (0.0-2.0); EOSINOPHILS % (AUTO) 1.1 % (0.0-6.0); HEMATOCRIT 31 % (39-51); HEMOGLOBIN 10.2 g/dL (13.5-17.5); LYMPHOCYTES # (AUTO) 0.9 /CMM (0.8-4.8); LYMPHOCYTES % (AUTO) 10.8 % (20.0-44.0); MEAN CORPUSCULAR HGB CONC 33 g/dl (31.0-36.0); MEAN CORPUSCULAR VOLUME 80 fL (80-96); MONOCYTES # (AUTO) 0.7 /CMM (0.1-1.30); MONOCYTES % (AUTO) 8.1 % (2.0-12.0); NEUTROPHILS # (AUTO) 6.8 /CMM (1.8-8.9); NEUTROPHILS % (AUTO) 79.9 % (43.0-81.0); PLATELET COUNT (AUTO) 337 /CMM (150-450); RED BLOOD CELL COUNT(AUTO) 3.84 MIL/uL (4.5-6.0); WHITE BLOOD COUNT (AUTO) 8.5 K/uL (4.3-11.0)
[2018-03-14 18:51] LABS: CALCIUM, SERUM 8.7 mg/dL (8.5-10.1); CREATININE 0.6 mg/dL (0.6-1.3); POTASSIUM 3.5 mmol/L (3.5-5.1)
--- NOTE | 2018-03-14 19:00 | NUR ---
MS RN RECEIVED PT ON BED, A/O X 3, NOT IN ANY FORM OF DISTRESS, RESPIRATIONS EVEN AND UNLABORED, NO SOB NOTED, STABLE CONDITION. SAFETY MEASURES IN PLACE. WILL CONTINUE TO MONITOR.
[2018-03-14 20:00] VITALS: BP 123/63
[2018-03-14] MEDS: ACETAMINOPHEN 325 MG TABLET PO PRN (20:55)
[2018-03-14] MEDS: ZOLPIDEM TARTRATE 5 MG TABLET PO PRN (20:58)
[2018-03-15] MEDS: PIPERACILLIN /TAZOBACTAM 3.375 G in IV D5W 100 ML IV SCH ×2 (04:08→11:11)
--- NOTE | 2018-03-15 06:27 | NUR ---
RN CLOSING NOTE ASLEEP AND EASILY AWAKEN. NOT IN DISTRESS. STABLE, NURSING CARE RENDERED, KEPT CLEAN AND DRY AND COMFORT, NEEDS ATTENDED AND ANTICIPATED. NO COMPLAIN OF PAIN. SAFETY MEASURES IN PLACE, CALL LIGHT WITHIN REACH. WILL ENDORSE TO CAN DRAGGER FOR EVGENY.
--- NOTE | 2018-03-15 07:39 | NUR ---
MS RN OPENING NOTE RECEIVED PT IN BED SLEEPING AND EASILY AROUSABLE PT IS ALERT AND ORIENTED X4, DENIES CHEST PAIN, SOB, N/V. BREATHING IS EVEN AND UNLABORED ON ROOM AIR. R FA #20G IV IS INFUSING NS @ 75ML/HR WITHOUT REDNESS OR SWELLING. ALL NEEDS ATTENDED TO. BED IS LOCKED AND IN LOWEST POSITION, SIDE RAILS UP X2, CALL LIGHT AND POSSESSIONS WITHIN REACH.
[2018-03-15 08:00] VITALS: BP 140/78
[2018-03-15] MEDS: OLANZAPINE 5 MG/TAB.RAPDIS PO SCH (08:52)
[2018-03-15] MEDS: GABAPENTIN 300 MG CAPSULE PO SCH ×2 (08:52→12:10)
[2018-03-15] MEDS: DIVALPROEX SODIUM 250 MG TABLET.DR PO SCH (08:52)
--- NOTE | 2018-03-15 08:52 | NUR ---
MS RN ZYPREXA NOTE ADDITIONAL DOSE OF ZYPREXA 10MG PULLED, HOWEVER ONLY 10MG OF ZYPREXA ADMINISTERED ORDERED. PT INITIALLY REFUSED DOSE AND THE NURSE DISPOSED OF FIRST DOSE. PT CHANGED HIS MIND THE NURSE BEGAN TO EXIT THE ROOM AND STATED HE WOULD TAKE THE ZYPREXA. ZYPREXA 10MG ADMINISTERED ORDERED.
--- NOTE | 2018-03-15 15:00 | NUR ---
MS RN PT DISCHARGED PT DISCHARGED TO [facility] IN MEDIALLY STABLE CONDITION. PT IS ALERT AND ORIENTED X4, DENIES N/V, CHEST PAIN, SOB. BREATHING IS EVEN AND UNLABORED ON ROOM AIR. PT DENIES SI AND AUDITORY OR VISUAL HALLUCINATIONS AT THIS TIME. RIGHT AC PERIPHERAL IV REMOVED WITH CATHETER TIP INTACT. DISCHARGE PAPERWORK AND EDUCATION PROVIDED PER PROTOCOL. REPORT GIVEN TO EMERSON ABRAHAM FOR CONTINUITY OF CARE. DISCUSSED PT DX, INFORMED THAT PT IS STATUS POST LATERAL NECK MASS BIOPSY ON 03/11. DISCUSSED PT BEHAVIOR, CURRENT ORDERED MEDICATIONS, AND DR DISCHARGE INSTRUCTIONS. PT REFUSED WOUND DOCUMENTATION. OFFERED X3 AND PT STRONGLY REFUSED ANY PHOTOS TO BE TAKEN. ALL BELONGINGS ACCOUNTED FOR. PT REFUSED TO SIGN BELONGINGS LIST AND D/C PAPERWORK. OPPORTUNITY TO ASSIST WITH ADLS PROVIDED AND PT REFUSED ASSISTANCE. REPORT GIVEN TO AMBULANCE STAFF FOR TRANSFER OF CARE.
== END 2018-03-15 15:00 | DRG 133 ==
LOC: MEDSG2 14:25
PROVIDERS: ADMIT Family Medicine; ATTEND Family Medicine
PROC: 07B23ZX Excision of Left Neck Lymphatic, Percutaneous Approach, Diagnostic (ICD-10-PCS; principal; 2018-03-13)
DX: C76.0 Malignant neoplasm of head, face and neck (principal); E44.1 Mild protein-calorie malnutrition; F29 Unspecified psychosis not due to a substance or known physiological condition; F32.9 Major depressive disorder, single episode, unspecified; D64.9 Anemia, unspecified; E11.9 Type 2 diabetes mellitus without complications; E78.1 Pure hyperglyceridemia; E61.1 Iron deficiency; Z85.72 Personal history of non-Hodgkin lymphomas; J32.9 Chronic sinusitis, unspecified; D72.829 Elevated white blood cell count, unspecified; F17.210 Nicotine dependence, cigarettes, uncomplicated; F25.0 Schizoaffective disorder, bipolar type
CPT/HCPCS: 36415; 71046; 76942-TC; 80048-TC; 80061-TC; 81000-TC; 83735-TC; 84100-TC; 85025-TC; 87040-TC; 87086-TC; 88305-TC; 88342; G0378; J2543; J7030; J7060